=== PATIENT | female | born 1990 | race African-American/Black ===

== ENCOUNTER 2016-10-26 01:00 | Emergency (ER) | payer MEDICAID ==
[~2016-10-26] VITALS: Ht 160 cm; Wt 59.0 kg
[2016-10-26 01:08] VITALS: BP_SYST 132
[2016-10-26] MEDS ORDERED: AMOXICILLIN 500 MG CAPSULE PO ONE (01:15)
[2016-10-26] MEDS ORDERED: IBUPROFEN 800 MG TABLET PO ONE (01:15)
== END 2016-10-26 01:32 | disposition home or self-care (01) ==
LOC: SED 01:00
DX: K04.7 Periapical abscess without sinus (principal); R50.9 Fever, unspecified
CPT/HCPCS: 99283

== ENCOUNTER 2020-06-30 09:53 | Emergency (ER) | payer MEDICAID ==
[~2020-06-30] VITALS: Ht 160 cm; Wt 65.8 kg
[2020-06-30 09:53] VITALS: BP_SYST 112
[2020-06-30 10:25] LABS: BILIRUBIN,URINE NEGATIVE (NEGATIVE); BLOOD, URINE NEGATIVE (NEGATIVE); CLARITY/URINE CLEAR (CLEAR); COLOR,URINE YELLOW (YELLOW); GLUCOSE,URINE NEGATIVE (NEGATIVE); KETONES,URINE NEGATIVE (NEGATIVE); LEUKOCYTE ESTERASE ,URINE NEGATIVE (NEGATIVE); NITRITE, URINE NEGATIVE (NEGATIVE); PH,URINE 7.5 (5.0-8.0); PROTEIN URINE NEGATIVE (NEGATIVE); UROBILINOGEN,URINE 0.2 (0.2-1.0)
[2020-06-30] MEDS ORDERED: MORPHINE 2 MG/ML INJ. SYRINGE IVP ONE (10:45)
[2020-06-30 11:14] LABS: BASOPHILS % (AUTO) 0.4 % (0.0-2.0); EOSINOPHILS # (AUTO) 0.1 K/uL (0.0-0.4); EOSINOPHILS % (AUTO) 1.4 % (0.0-4.0); HEMATOCRIT 37.4 % (36-48); HEMOGLOBIN 12.6 g/dL (12.0-16.0); LYMPHOCYTES # (AUTO) 1.7 K/uL (1.0-5.5); LYMPHOCYTES % (AUTO) 20.6 % (20.5-51.5); MEAN CORPUSCULAR HEMOGLOBIN 30 pg (27-31); MEAN CORPUSCULAR HGB CONC 34 % (32-36); MEAN CORPUSCULAR VOLUME 89 fL (79.0-98.0); MONOCYTES # (AUTO) 0.5 K/uL (0.0-1.0); MONOCYTES % (AUTO) 5.7 % (1.7-9.3); NEUTROPHILS # (AUTO) 5.8 K/uL (1.8-7.7); NEUTROPHILS % (AUTO) 71.9 % (40.0-70.0); PLATELET COUNT (AUTO) 281 K/uL (130-430); RED BLOOD CELL COUNT(AUTO) 4.18 MIL/uL (4.2-6.2); RED CELL DISTRIBUTION WIDTH 14.4 % (9.0-15.0); WHITE BLOOD COUNT (AUTO) 8.1 K/uL (4.8-10.8)
[2020-06-30] MEDS ORDERED: ACETAMINOPHEN 325 MG TABLET PO ONE (11:15)
[2020-06-30 11:30] LABS: CALCIUM 8.8 mg/dL (8.4-11.0); CREATININE 0.56 mg/dL (0.55-1.30); POTASSIUM 3.7 mmol/L (3.5-5.1)
[2020-06-30 13:16] VITALS: BP_SYST 124
== END 2020-06-30 13:17 | disposition home or self-care (01) ==
LOC: SED 09:53
DX: R10.30 Lower abdominal pain, unspecified (principal)
CPT/HCPCS: 36415; 76801; 76817; 80048; 81003; 84702-TC; 85025; 99284; J2270

== ENCOUNTER 2020-10-12 12:45 | Observation (INO) | payer MEDICAID ==
[~2020-10-12] VITALS: Ht 160 cm; Wt 77.1 kg
[2020-10-12] MEDS ORDERED: ACETAMINOPHEN 500 MG TABLET PO PRN (13:45)
[2020-10-12] MEDS ORDERED: TERBUTALINE SULFATE 1 MG/ML VIAL SUBCUT ONE (13:45)
[2020-10-12] MEDS ORDERED: BETAMET ACET/BETAMET NA PH 30 MG/5 ML VIAL IM SCH (15:00)
[2020-10-12] MEDS ORDERED: LR 1,000 ML IV SCH (15:00)
[2020-10-12 16:05] LABS: BILIRUBIN,URINE NEGATIVE (NEGATIVE); BLOOD, URINE NEGATIVE (NEGATIVE); COLOR,URINE YELLOW (YELLOW); GLUCOSE,URINE NEGATIVE (NEGATIVE); KETONES,URINE NEGATIVE (NEGATIVE); LEUKOCYTE ESTERASE ,URINE NEGATIVE (NEGATIVE); NITRITE, URINE NEGATIVE (NEGATIVE); PROTEIN URINE NEGATIVE (NEGATIVE); UROBILINOGEN,URINE 0.2 (0.2-1.0)
[2020-10-12 16:12] LABS: CLARITY/URINE SLIGHTLY HAZY (CLEAR)
[2020-10-12 16:15] LABS: HEMOGLOBIN 12.2 g/dL (12.0-16.0); MEAN CORPUSCULAR HGB CONC 34 % (32-36); RED BLOOD CELL COUNT(AUTO) 3.94 MIL/uL (4.2-6.2)
[2020-10-12 16:23] LABS: BASOPHILS # (AUTO) 0.1 K/uL (0.0-0.2); BASOPHILS % (AUTO) 0.9 % (0.0-2.0); EOSINOPHILS # (AUTO) 0.1 K/uL (0.0-0.4); EOSINOPHILS % (AUTO) 1.3 % (0.0-4.0); HEMATOCRIT 36.2 % (36-48); LYMPHOCYTES # (AUTO) 1.7 K/uL (1.0-5.5); LYMPHOCYTES % (AUTO) 25.1 % (20.5-51.5); MEAN CORPUSCULAR HEMOGLOBIN 31 pg (27-31); MEAN CORPUSCULAR VOLUME 92 fL (79.0-98.0); MONOCYTES # (AUTO) 0.5 K/uL (0.0-1.0); MONOCYTES % (AUTO) 6.8 % (1.7-9.3); NEUTROPHILS # (AUTO) 4.5 K/uL (1.8-7.7); NEUTROPHILS % (AUTO) 65.9 % (40.0-70.0); PLATELET COUNT (AUTO) 208 K/uL (130-430); RED CELL DISTRIBUTION WIDTH 13.8 % (9.0-15.0); WHITE BLOOD COUNT (AUTO) 6.8 K/uL (4.8-10.8)
[2020-10-12 16:33] LABS: ALBUMIN 2.6 g/dL (3.4-4.8); CALCIUM 8.4 mg/dL (8.4-11.0); CREATININE 0.67 mg/dL (0.55-1.30); POTASSIUM 3.9 mmol/L (3.5-5.1); TOTAL BILIRUBIN 0.4 mg/dL (0.0-1.0)
== END 2020-10-12 18:45 | disposition home health service (06) ==
LOC: SPU 12:45
PROVIDERS: ADMIT Specialist; ATTEND Specialist
DX: O62.9 Abnormality of forces of labor, unspecified (principal); Z3A.29 29 weeks gestation of pregnancy
CPT/HCPCS: 36415; 76817; 80053; 81002; 81003; 85025; 96360; 96361; 96372; G0378; J0702

== ENCOUNTER 2020-10-13 14:45 | Observation (INO) | payer MEDICAID ==
[~2020-10-13] VITALS: Ht 160 cm; Wt 78.0 kg
[2020-10-13] MEDS ORDERED: BETAMET ACET/BETAMET NA PH 30 MG/5 ML VIAL IM ONE (15:30)
== END 2020-10-13 16:50 | disposition home or self-care (01) ==
LOC: SPU 14:45
PROVIDERS: ADMIT Obstetrics & Gynecology; ATTEND Obstetrics & Gynecology
DX: Z34.82 Encounter for supervision of other normal pregnancy, second trimester (principal); Z3A.27 27 weeks gestation of pregnancy
CPT/HCPCS: 59025; 96372; G0378; J0702

== ENCOUNTER 2022-11-16 19:05 | Emergency (ER) | payer MEDICAID ==
[~2022-11-16] VITALS: Ht 162.6 cm; Wt 75.3 kg
--- NOTE | 2022-11-16 19:59 | NUR ---
PATIENT PRESENTS TO ED FOR RIGHT EYE REDNESS AND IRRITATION X 2 WEEKS, SHARP PAIN AND PRESSURE TO RIGHT EYE BEGAN 1 WEEK AGO, DENIES DRAINAGE, 10/29 PAIN
[2022-11-16 20:00] VITALS: BP_SYST 118; PULSE 68; RESP 16; TEMP 98.3; O2SAT 99
--- NOTE | 2022-11-16 20:00 | NUR ---
PATIENT PLACED IN HALLWAY 1
--- NOTE | 2022-11-16 20:10 | NUR ---
Pt bib . c/o R eye pain onset of 2 weeks. Pt states to have noted eye pain and then noticed slight redness. Pt denies trauma to area. Pt states to have not been able to go to PCP, and redness got worse this morning which prompted her to come to ER today. Pt denies drainage. Pt afebrile. Redness noted in R eye, no noteable trauma seen. Pt denies N/V/D. Pt VSS. AAOX4. Skin dry and intact. PERRLA. Pt in bed with side rails up.
[2022-11-16] MEDS ORDERED: TETRACAINE HCL/PF 0.5% OPHTHALMIC DROPS 4 ML OP ONE (20:15)
[2022-11-16] MEDS ORDERED: FLUORESCEIN SODIUM 1 MG OPHTHALMIC STRIP OP ONE (20:15)
--- NOTE | 2022-11-16 20:15 | NUR ---
ER at bedside examining patient.
--- NOTE | 2022-11-16 20:30 | NUR ---
visual acuity performed on pt. R 20/15 L 20/15 MD notified
--- NOTE | 2022-11-16 20:55 | NUR ---
MD mora performing strip test on pt.
[2022-11-16] MEDS ORDERED: ERYEYE RIGHT EYE (21:03)
[2022-11-16 21:17] VITALS: BP_SYST 122; PULSE 66; RESP 15; TEMP 98.8; O2SAT 98
--- NOTE | 2022-11-16 21:17 | NUR ---
Patient given written and verbal discharge instructions and verbalizes understanding. ER MD discussed with patient the results and treatment provided. Patient in stable condition. ID arm band removed. Rx of ERYTHROMYCIN given. Patient educated on pain management and to follow up with PMD. Opportunity for questions provided and answered. Medication side effect fact sheet provided.
== END 2022-11-16 21:17 | disposition home or self-care (01) ==
LOC: SED 19:05
DX: H10.9 Unspecified conjunctivitis (principal); H53.142 Visual discomfort, left eye; H57.89 Other specified disorders of eye and adnexa; R51.9 Headache, unspecified; Z79.899 Other long term (current) drug therapy
CPT/HCPCS: 99283

== ENCOUNTER 2023-07-16 17:21 | Emergency (ER) | payer OTHER, MEDICAID ==
[~2023-07-16] VITALS: Ht 165.1 cm; Wt 81.6 kg
[~2023-07-16 17:21] MED LIST: ERYEYE RIGHT EYE
[2023-07-16 17:26] VITALS: BP_SYST 127; PULSE 90; RESP 20; TEMP 97.9; O2SAT 98
[2023-07-16 18:17] LABS: BASOPHILS % (AUTO) 0.7 % (0.0-2.0); EOSINOPHILS # (AUTO) 0.2 K/uL (0.0-0.4); EOSINOPHILS % (AUTO) 2.8 % (0.0-4.0); HEMATOCRIT 38.5 % (36-48); HEMOGLOBIN 12.6 g/dL (12.0-16.0); LYMPHOCYTES # (AUTO) 2.9 K/uL (1.0-5.5); LYMPHOCYTES % (AUTO) 50.1 % (20.5-51.5); MEAN CORPUSCULAR HEMOGLOBIN 29 pg (27-31); MEAN CORPUSCULAR HGB CONC 33 % (32-36); MEAN CORPUSCULAR VOLUME 88 fL (79.0-98.0); MONOCYTES # (AUTO) 0.3 K/uL (0.0-1.0); MONOCYTES % (AUTO) 4.8 % (1.7-9.3); NEUTROPHILS # (AUTO) 2.4 K/uL (1.8-7.7); NEUTROPHILS % (AUTO) 41.6 % (40.0-70.0); PLATELET COUNT (AUTO) 334 K/uL (130-430); RED CELL DISTRIBUTION WIDTH 14.2 % (9.0-15.0); WHITE BLOOD COUNT (AUTO) 5.7 K/uL (4.8-10.8)
[2023-07-16 18:39] LABS: ANION GAP 7 (5-15); CALCIUM 8.8 mg/dL (8.4-11.0); CARBON DIOXIDE 27 mmol/L (23-29); CHLORIDE 104 mmol/L (98-107); CREATININE 0.83 mg/dL (0.55-1.30); GFR AFRICAN AMERICAN 102 mL/min (>90); GFR NON AFRICAN-AMERICAN 85 mL/min (>90); GLUCOSE 81 mg/dL (74-106); POTASSIUM 4.2 mmol/L (3.5-5.1); SODIUM SERUM 138 mmol/L (136-145); UREA NITROGEN, BLOOD 17 mg/dL (8-21)
[2023-07-16] MEDS ORDERED: AUG875 PO (18:46)
[2023-07-16 19:02] VITALS: BP_SYST 127; PULSE 90; RESP 20; TEMP 97.9; O2SAT 98
== END 2023-07-16 19:00 | disposition home or self-care (01) ==
LOC: SED 17:21
DX: J32.9 Chronic sinusitis, unspecified (principal); R51.9 Headache, unspecified; R05.9 Cough, unspecified; R09.81 Nasal congestion; Z79.899 Other long term (current) drug therapy
CPT/HCPCS: 36415; 80048; 84484; 85025; 93005; 99284

== ENCOUNTER 2023-08-06 19:16 | Emergency (ER) | payer OTHER, MEDICAID ==
[~2023-08-06] VITALS: Ht 162.6 cm; Wt 79.8 kg
[~2023-08-06 19:16] MED LIST changes: +AUG875 PO
[2023-08-06 19:35] VITALS: BP_SYST 112; PULSE 114; RESP 16; TEMP 98.5; O2SAT 99
[2023-08-06 20:17] LABS: BASOPHILS % (AUTO) 0.6 % (0.0-2.0); EOSINOPHILS # (AUTO) 0.2 K/uL (0.0-0.4); EOSINOPHILS % (AUTO) 3.7 % (0.0-4.0); HEMATOCRIT 36.4 % (36-48); HEMOGLOBIN 12.2 g/dL (12.0-16.0); LYMPHOCYTES # (AUTO) 3.1 K/uL (1.0-5.5); LYMPHOCYTES % (AUTO) 56.3 % (20.5-51.5); MEAN CORPUSCULAR HEMOGLOBIN 29 pg (27-31); MEAN CORPUSCULAR HGB CONC 34 % (32-36); MEAN CORPUSCULAR VOLUME 88 fL (79.0-98.0); MONOCYTES # (AUTO) 0.2 K/uL (0.0-1.0); MONOCYTES % (AUTO) 3.9 % (1.7-9.3); NEUTROPHILS # (AUTO) 1.9 K/uL (1.8-7.7); NEUTROPHILS % (AUTO) 35.5 % (40.0-70.0); PLATELET COUNT (AUTO) 370 K/uL (130-430); RED BLOOD CELL COUNT(AUTO) 4.16 MIL/uL (4.2-6.2); RED CELL DISTRIBUTION WIDTH 14.3 % (9.0-15.0); WHITE BLOOD COUNT (AUTO) 5.5 K/uL (4.8-10.8)
[2023-08-06 20:20] LABS: CALCIUM 8.6 mg/dL (8.4-11.0); CREATININE 0.94 mg/dL (0.55-1.30); POTASSIUM 4.2 mmol/L (3.5-5.1)
[2023-08-06 20:21] LABS: SERUM HCG (QUALITATIVE) NEGATIVE (NEGATIVE)
[2023-08-06 20:24] LABS: ALBUMIN 3.7 g/dL (3.4-4.8); BILIRUBIN,DIRECT 0.1 mg/dL (0.0-0.3); TOTAL BILIRUBIN 0.5 mg/dL (0.0-1.0)
[2023-08-06] MEDS: MAGNESIUM CITRATE 300 ML ORAL SOLUTION PO ONE (21:35)
[2023-08-06] MEDS ORDERED: DOCU283E RC (21:39)
[2023-08-06] MEDS ORDERED: DOCU-144 PO (21:39)
[2023-08-06] MEDS ORDERED: MAGN296S8 PO (21:39)
[2023-08-06 22:14] LABS: BILIRUBIN,URINE NEGATIVE (NEGATIVE); BLOOD, URINE 3+ (NEGATIVE); COLOR,URINE YELLOW (YELLOW); GLUCOSE,URINE NEGATIVE (NEGATIVE); KETONES,URINE NEGATIVE (NEGATIVE); LEUKOCYTE ESTERASE ,URINE TRACE (NEGATIVE); NITRITE, URINE NEGATIVE (NEGATIVE); PH,URINE 5.5 (5.0-8.0); PROTEIN URINE NEGATIVE (NEGATIVE); UROBILINOGEN,URINE 0.2 (0.2-1.0)
[2023-08-06 22:21] LABS: CLARITY/URINE HAZY (CLEAR)
[2023-08-06 22:38] LABS: BACTERIA,URINE FEW /HPF (None Seen)
[2023-08-07 01:02] VITALS: BP_SYST 112; PULSE 75; RESP 16; TEMP 98.5; O2SAT 98
== END 2023-08-07 01:02 | disposition home or self-care (01) ==
LOC: SED 19:16
DX: K59.00 Constipation, unspecified (principal)
CPT/HCPCS: 36415; 80048; 80076; 81000; 81001; 81015; 81025; 83690; 84703; 85025; 99284